=== PATIENT | female | born 1975 ===

== ENCOUNTER → 2022-05-20 | Outpatient (CLI) | payer OTHER ==
[~2022-05-20] MED LIST: DOCUSATE SODIU250 MG PO; FISH OIL 1,0001 EAC8 PO; HYDROCODONE-AC1 EACH PO; IBUPROFEN600 MG PO; KLONOPIN1 MG PO; MONTELUKAST SOD10 MG PO; REMERON 15 MG T15 MG PO; SEROQUEL200 MG PO; VITAMIN D21250 MCG PO; WELLBUTRIN SR150 M1 PO
[2022-05-20 14:09] LABS: HEMOGLOBIN 13.5 gm/dl (12.3-15.3); RED BLOOD COUNT 4.26 M/UL (4.00-5.10)
== END ==
LOC: OPSV2 12:30
PROVIDERS: Obstetrics & Gynecology
DX: Z01.812 Encounter for preprocedural laboratory examination (principal); N92.1 Excessive and frequent menstruation with irregular cycle
CPT/HCPCS: 81001; 85025

== ENCOUNTER → 2022-05-24 | Day surgery (SDC) | payer OTHER ==
[~2022-05-24] VITALS: Ht 182.9 cm; Wt 90.7 kg
== END | disposition home or self-care (01) ==
LOC: OR 05:42
DX: N83.8 Other noninflammatory disorders of ovary, fallopian tube and broad ligament (principal); N92.0 Excessive and frequent menstruation with regular cycle; N92.6 Irregular menstruation, unspecified; Z80.41 Family history of malignant neoplasm of ovary; Z72.0 Tobacco use
CPT/HCPCS: 84703; 93005; C1769; J0690; J1100; J1885; J2001; J2250; J2405; J2704; J3010